=== PATIENT | male | born 1945 | race Hispanic/Latino ===

== ENCOUNTER 2018-07-13 09:09 | Emergency (ER) | payer MEDICARE ==
[2018-07-13] MEDS ORDERED: ANTIBIOTIC OINT TP STA (10:21)
[2018-07-13] MEDS ORDERED: BOOSTRIX IM ONE (10:21)
--- NOTE | 2018-07-13 10:23 | Emergency Department Report ---
ED General Adult HPI - General Chief complaint: Fall Stated complaint: FALL Time Seen by Provider: 07/13/18 10:15 Source: patient, EMS (ems notes not available at time of chart dictation) Mode of arrival: Stretcher Limitations: Other (patient is a poor historian) - History of Present Illness Initial comments: This is a 73-year-old gentleman. The patient is apparently a resident at a local care home. He is brought to the hospital by emergency medical services for fall. The patient believes that the fall was mechanical. He indicates that he has right elbow pain, and right facial, periorbital pain. He indicates the pain increases with palpation and decreases with rest. He does not have a qualitative descriptor for the pain. The pain does not radiate anywhere. He denies severe headache, midline neck pain, chest pain, abdominal pain, source of breath, urinary symptoms. -: Sudden Location: head, face, right, upper extremity Radiation: non-radiation Severity scale (0 -10): 3 Consistency: intermittent Improves with: rest Worsens with: movement Associated Symptoms: confusion (baseline dementia) - Related Data Home Medications Medication Instructions Recorded Confirmed Last Taken Amlodipine-Benazepril 5-10 mg 1 tab PO DAILY 07/13/18 07/13/18 Unknown Benzonatate 100 mg PO TID PRN 07/13/18 07/13/18 Unknown Doxepin [SINEquan] 25 mg PO QHS 07/13/18 07/13/18 Unknown Multiple Vitamins 1 tab PO DAILY 07/13/18 07/13/18 Unknown Glasco-3 2 PO HS 07/13/18 Unknown QUEtiapine [SEROquel] 25 mg PO HS 07/13/18 07/13/18 Unknown RX: ALBUTEROL NEB's [Proventil 1 puff IH TID 07/13/18 07/13/18 Unknown 0.083% NEBS] RX: Naproxen Sodium 1 tab PO HS 07/13/18 07/13/18 Unknown Senna-S Tablet 1 tab PO DAILY PRN 07/13/18 07/13/18 Unknown Tobramycin 0.3% 1 drops TID 07/13/18 07/13/18 Unknown Allergies Allergy/AdvReac Type Severity Reaction Status Date / Time No Known Allergies Allergy Unverified 07/13/18 09:51 ED Review of Systems ROS: Stated complaint: FALL Other details as noted in HPI Constitutional: denies: fever Eyes: other (periorbital pain) ENT: denies: epistaxis Respiratory: cough (positive cough) Cardiovascular: denies: chest pain Gastrointestinal: denies: abdominal pain Genitourinary: denies: dysuria Musculoskeletal: arthralgia, myalgia. denies: back pain Skin: other (periorbital ecchymosis) Neurological: confusion (baseline confusion). denies: weakness ED Past Medical Hx - Past Medical History Previous Medical History?: Yes Hx Hypertension: Yes Hx Arthritis: Yes Hx COPD: Yes Hx Dementia: Yes - Surgical History Past Surgical History?: Yes Hx Cholecystectomy: Yes - Social History Smoking Status: Former Smoker Substance Use Type: Prescribed - Medications Home Medications: Home Medications Medication Instructions Recorded Confirmed Last Taken Type Amlodipine-Benazepril 5-10 mg 1 tab PO DAILY 07/13/18 07/13/18 Unknown History Benzonatate 100 mg PO TID PRN 07/13/18 07/13/18 Unknown History Doxepin [SINEquan] 25 mg PO QHS 07/13/18 07/13/18 Unknown History Multiple Vitamins 1 tab PO DAILY 07/13/18 07/13/18 Unknown History Glasco-3 2 PO HS 07/13/18 Unknown History QUEtiapine [SEROquel] 25 mg PO HS 07/13/18 07/13/18 Unknown History RX: ALBUTEROL NEB's [Proventil 1 puff IH TID 07/13/18 07/13/18 Unknown History 0.083% NEBS] RX: Naproxen Sodium 1 tab PO HS 07/13/18 07/13/18 Unknown History Senna-S Tablet 1 tab PO DAILY PRN 07/13/18 07/13/18 Unknown History Tobramycin 0.3% 1 drops TID 07/13/18 07/13/18 Unknown History ED Physical Exam - General Limitations: Other (poor historian, question dementia) General appearance: alert, in no apparent distress - Head Head exam: Present: normocephalic, other (periorbital swelling, right-sided, ecchymotic) - Eye Eye exam: Present: PERRL, EOMI, periorbital swelling, periorbital tenderness (right-sided), other (visual acuity intact to finger counting, color perception). Absent: nystagmus - ENT ENT exam: Present: normal exam, normal orophraynx, mucous membranes moist, normal external ear exam, other (is no nasal septal hematoma) - Neck Neck exam: Present: normal inspection, full ROM. Absent: tenderness, meningismus - Respiratory Respiratory exam: Present: normal lung sounds bilaterally. Absent: respiratory distress - Cardiovascular Cardiovascular Exam: Present: regular rate, normal rhythm, normal heart sounds. Absent: bradycardia, tachycardia, irregular rhythm, systolic murmur, diastolic murmur, rubs, gallop - GI/Abdominal GI/Abdominal exam: Present: soft. Absent: distended, tenderness, guarding, rebound, rigid, pulsatile mass - Rectal Rectal exam: Present: deferred - Extremities Exam Extremities exam: Present: full ROM, other (2+ pulses noted in the bilateral upper, lower extremities. Compartments soft. No long bony tenderness. The pelvis is stable.). Absent: normal inspection (left upper extremity, bilateral lower extremities nontender, with no redness, pus or streaking. The right upper extremity has an elbow ecchymosis and abrasion), tenderness, calf tenderness - Back Exam Back exam: Present: normal inspection, full ROM. Absent: tenderness, CVA tenderness (R), paraspinal tenderness, vertebral tenderness - Neurological Exam Neurological exam: Present: alert (alert to name. Follows commands.), other (Extraocular movements intact. Tongue midline. No facial droop. Facial sensation intact to light touch in the V1, V2, V3 distribution bilaterally. 5 and 5 strength in 4 extremities.. Sensation is intact to light touch in 4 extremities.). Absent: motor sensory deficit - Psychiatric Psychiatric exam: Present: normal mood - Skin Skin exam: Present: warm, abrasion, ecchymosis ED Course Vital Signs 07/13/18 07/13/18 07/13/18 09:22 09:30 09:44 Temperature 96.9 F L Pulse Rate 76 63 Respiratory 14 16 16 Rate Blood Pressure 141/87 141/87 Blood Pressure 141/87 [Right] O2 Sat by Pulse 97 Oximetry 07/13/18 07/13/18 07/13/18 09:45 10:00 10:15 Temperature Pulse Rate 63 83 72 Respiratory 18 16 17 Rate Blood Pressure 137/82 170/82 170/82 Blood Pressure [Right] O2 Sat by Pulse 98 92 97 Oximetry 07/13/18 07/13/18 07/13/18 10:21 10:31 10:45 Temperature Pulse Rate 78 64 95 H Respiratory 13 18 Rate Blood Pressure 170/82 170/82 Blood Pressure [Right] O2 Sat by Pulse 98 95 Oximetry - Reevaluation(s) Reevaluation #1: 07/13/18 11:15 Differential diagnosis, including not limited to: Intracranial injury, facial injury, cervical spine injury, soft tissue injury, multiple abrasions, pneumonia, bronchitis, electrolyte derangement, urinary tract infection Assessment and plan: 73-year-old gentleman status post presumed mechanical fall. In the emergency room, the patient is afebrile, with reassuring vital signs, is not tachycardic, and is not hypoxic. Screening laboratory studies pending, x-ray of the chest, x-ray of the right elbow pending, he will be given a tetanus vaccination, wound care will be applied by the nursing team, we will obtain urinalysis, and CT scan of the facial bones, brain, and cervical spine. We will reassess after initial data points. Reevaluation #2: 07/14/18 19:42 Please note that this particular medical record was created in error by the clerical staff. This is actually the patient's sons chart, and not the patient himself. Please reference the other charts of patient with the same name who is 89 years old. ED Medical Decision Making - Lab Data Result diagrams: 07/13/18 10:24 07/13/18 10:24 Vital Signs 07/13/18 07/13/18 07/13/18 09:22 09:30 09:44 Temperature 96.9 F L Pulse Rate 76 63 Respiratory 14 16 16 Rate Blood Pressure 141/87 141/87 Blood Pressure 141/87 [Right] O2 Sat by Pulse 97 Oximetry 07/13/18 07/13/18 07/13/18 09:45 10:00 10:15 Temperature Pulse Rate 63 83 72 Respiratory 18 16 17 Rate Blood Pressure 137/82 170/82 170/82 Blood Pressure [Right] O2 Sat by Pulse 98 92 97 Oximetry 07/13/18 07/13/18 07/13/18 10:21 10:31 10:45 Temperature Pulse Rate 78 64 95 H Respiratory 13 18 Rate Blood Pressure 170/82 170/82 Blood Pressure [Right] O2 Sat by Pulse 98 95 Oximetry Lab Results 07/13/18 07/13/18 Range/Units 10:24 10:24 WBC 8.5 (4.5-11.0) K/mm3 RBC 3.78 (3.65-5.03) M/mm3 Hgb 12.4 (11.8-15.2) gm/dl Hct 36.5 (35.5-45.6) % MCV 96 H (84-94) fl MCH 33 H (28-32) pg MCHC 34 (32-34) % RDW 13.1 L (13.2-15.2) % Plt Count 199 (140-440) K/mm3 Sodium 140 (137-145) mmol/L Potassium 4.4 (3.6-5.0) mmol/L Chloride 100.3 (98-107) mmol/L Carbon Dioxide 29 (22-30) mmol/L Anion Gap 15 mmol/L BUN 20 (9-20) mg/dL Creatinine 0.7 L (0.8-1.5) mg/dL Estimated GFR > 60 ml/min BUN/Creatinine Ratio 29 % Glucose 95 (75-100) mg/dL Calcium 9.0 (8.4-10.2) mg/dL Magnesium 1.80 (1.7-2.3) mg/dL Total Creatine Kinase 64 (55-170) units/L - EKG Data -: EKG Interpreted by Vt EKG shows normal: sinus rhythm - EKG Data 07/13/18 11:17 Sinus rhythm, 73 bpm, left axis deviation, left anterior fascicular block, DE interval prolonged, premature ventricular contractions, abnormal EKG, not having chest pain, QTC prolonged, not consistent with ST elevation myocardial infarction. - Radiology Data Radiology results: pending Critical care attestation.: If time is entered above; I have spent that time in minutes in the direct care of this critically ill patient, excluding procedure time. ED Disposition Clinical Impression: Fall Disposition: DC-01 TO HOME OR SELFCARE Is pt being admited?: No Does the pt Need Aspirin: No Condition: Undetermined Referrals: PRIMARY CARE, [Primary Care Provider] - 3-5 Days
[2018-07-13 10:33] LABS: Hematocrit 36.5 % (35.5-45.6); Hemoglobin 12.4 gm/dl (11.8-15.2); Mean Corpuscular HGB Conc 34 % (32-34); Mean Corpuscular Volume 96 fl (84-94); Platelet Count 199 K/mm3 (140-440); Red Blood Count 3.78 M/mm3 (3.65-5.03); Red Cell Distribution Width 13.1 % (13.2-15.2)
[2018-07-13 10:50] LABS: BUN/Creatinine Ratio 29; Blood Urea Nitrogen 20 mg/dL (9-20); Hemolysis Index 20
[2018-07-13 10:52] VITALS: BP 170/82
[2018-07-13 11:28] LABS: Bilirubin,Urine NEG (Negative); Blood,Urine NEG (Negative); Color,Urine Yellow (Yellow); Protein,Urine <15 mg/dL mg/dL (Negative); Urobilinogen,Urine < 2.0 mg/dL (<2.0)
--- NOTE | 2018-07-13 16:33 | XRay Report ---
PROCEDURE: XR ELBOW 2V RT TECHNIQUE: 2 portable views of right elbow HISTORY: fall right elbow pain COMPARISON: None FINDINGS: There is no fracture or dislocation seen. Lateral view limited due to lack of full flexion. IMPRESSION: Grossly no acute abnormality seen. Lateral view limited due to lack of full flexion. This document is electronically signed by Jia Rojas MD., July 13 2018 01:09:20 PM ET
--- NOTE | 2018-07-13 16:44 | XRay Report ---
PROCEDURE: XR CHEST 1V AP TECHNIQUE: Chest radiograph single view. HISTORY: fall cough COMPARISONS: None . FINDINGS: Heart: Normal. Mediastinum/Vessels: Normal. Lungs/Pleural space: Normal. Bony thorax: No acute osseous abnormality. Life support devices: None. IMPRESSION: No acute cardiopulmonary abnormality. This document is electronically signed by Christina Odom MD., July 13 2018 01:15:51 PM ET
--- NOTE | 2018-07-13 17:00 | Cat Scan Report ---
PROCEDURE: CT HEAD/BRAIN WO CON TECHNIQUE: A noncontrast CT of the head was performed. HISTORY: fall facial abrasions COMPARISON: None FINDINGS: There is moderate cerebral atrophy. There is no acute intracranial hemorrhage. There is no brain edema, mass effect or midline shift. Ventricular size is appropriate for brain volume. There is no abnormal extra-axial fluid collections. There is no skull fracture seen. The visualized paranasal sinuses are clear. There is soft tissue swelling superficial to the right orbit. IMPRESSION: There is no acute intracranial abnormality seen. This document is electronically signed by Jia Rojas MD., July 13 2018 01:26:45 PM ET
--- NOTE | 2018-07-13 17:53 | Cat Scan Report ---
PROCEDURE: CT CERVICAL SPINE WO CON TECHNIQUE: CT of the cervical spine performed. Axial images and coronal and sagittal reformatted imag es were obtained. HISTORY: fall facial abrasions COMPARISON: None FINDINGS: There is no fracture identified. There is mild anterior subluxation of C4 which is likely on the basi s of facet arthropathy. Specifically, facet arthropathy is notable on the right throughout the cervic al spine. There is also marked degenerative disc disease at C5-6 and C6-7. There is less notable degenerative d isc disease at other levels. IMPRESSION: There is no acute cervical spine fracture or posttraumatic subluxation seen. Prominent degenerative changes. Anterior subluxation of C4 is likely on the basis of facet arthropath y. This document is electronically signed by Jia Rojas MD., July 13 2018 02:03:25 PM ET
--- NOTE | 2018-07-13 18:02 | Cat Scan Report ---
PROCEDURE: CT FACIAL BONES WO CON TECHNIQUE: CT of the facial bones performed. Axial images and coronal and sagittal reformatted image s were obtained. HISTORY: fall facial abrasions COMPARISON: None FINDINGS: There is soft tissue swelling superficial to the right orbit. No intraorbital abnormality seen. There is no facial fracture identified. IMPRESSION: Soft tissue swelling superficial to right orbit. No facial fracture seen. This document is electronically signed by Jia Rojas MD., July 13 2018 02:08:36 PM ET
== END 2018-07-13 15:09 | disposition home or self-care (01) ==
LOC: EDBD → ED 09:09 → MERGE 09:09 → ED 15:09
DX: R51 Headache (principal); M25.521 Pain in right elbow; R41.0 Disorientation, unspecified; I10 Essential (primary) hypertension; M19.90 Unspecified osteoarthritis, unspecified site; J45.909 Unspecified asthma, uncomplicated; F03.90 Unspecified dementia, unspecified severity, without behavioral disturbance, psychotic disturbance, mood disturbance, and anxiety; Z87.891 Personal history of nicotine dependence; Z79.899 Other long term (current) drug therapy; Z90.49 Acquired absence of other specified parts of digestive tract; W19.XXXA Unspecified fall, initial encounter; Y93.89 Activity, other specified; Y92.89 Other specified places as the place of occurrence of the external cause; Y99.8 Other external cause status
CPT/HCPCS: 36415; 70450; 70486; 71045; 72125; 80048; 81001; 82550; 83735; 85027; 93005; 93010; 99283